=== PATIENT | female | born 1930 | race Caucasian/White ===

== ENCOUNTER 2017-01-01 05:55 | Inpatient (IN) | payer MEDICARE ==
[2017-01-01] VITALS (17 sets, daily range): BP systolic 124–191; BP diastolic 58–114; PULSE 71–123; RESP 20–28; TEMP 97.7–98; O2SAT 96–100
[~2017-01-01] VITALS: Ht 157.5 cm; Wt 58.1 kg
[~2017-01-01 05:55] MED LIST: ATOR40TA49 PO; BAYE325T3 PO; CARV3.12 PO; CEPH500C3 PO; CLOP75 PO; LISI-587 PO; LORTA5 PO; NITR.4 SL
[2017-01-01] MEDS ORDERED: NITROGLYCERIN-DEXTROSE INJ 250 ML ONE (05:58)
[2017-01-01] MEDS ORDERED: NITROGLYCERIN-DEXTROSE INJ 250 ML IV ONE (06:15)
[2017-01-01] MEDS ORDERED: SODIUM CHLORIDE 0.9% FLUSH 10 ML FLUSH IVF PRN (06:15)
[2017-01-01] MEDS ORDERED: ASPIRIN 300 MG SUPP RECTAL ONE (06:15)
[2017-01-01] MEDS ORDERED: methylPREDNISolone SOD SUCC 125 MG/2 ML VIAL IVP ONE (06:15)
--- NOTE | 2017-01-01 06:18 | PD ---
HPI Chief Complaint: Respiratory Symptoms Time Seen by Provider: 06:04 Travel History International Travel<30 days: No Contact w/Intl Traveler<30days: No Traveled to known affect area: No History of Present Illness HPI The patient is an 86 year old female who presents to the [facility] emergency department with a history of shortness of breath that awoke her from sound sleep prior to arrival. The patient on arrival of ambulance services was noted to be tachypneic with a respiratory rate in the 60s, blood pressure initially 240/120, diaphoretic, with difficulty speaking related to conversational dyspnea. The patient was noted to be wheezing on examination and was started on an albuterol nebulizer treatment. The patient was then noted to have some crackles. The patient was given Lasix 40 IV, nitroglycerin sublingual times one. The patient on arrival reports continued respiratory distress. The patient was switched over to BiPAP. The patient's O2 saturation on arrival is 93-94%. Ambulance services reported that they were not able to assess the patient's O2 saturation on room air, as she was in such respiratory distress immediately placed her on a nonrebreather mask. The patient reports that she does have chest tightness. She reports that she has had a history of myocardial infarction in 2004. She reports that she quit smoking at that time. She reports that she does have a history of COPD. The patient denies being on any oxygen at home. Otherwise on review of systems, the patient denies having any known fevers, worsening cough or congestion recently, neck pain, abdominal pain, vomiting, diarrhea, urinary symptoms, or neurologic symptoms. [facility] Past Medical History Narrative Medical The patient's past medical history is significant for coronary artery disease status post myocardial infarction. The patient denies any history of hypertension. The patient has a history of COPD, according to the record the patient has a history of congestive heart failure, arthritis, and according to the record hypertension. She denies being on any antihypertensive medications. Hx Anticoagulant Therapy: Yes Arthritis: Yes Asthma: No Blood Disorders: No Anxiety: No Depression: No Heart Rhythm Problems: Yes (SKIPPING BEATS) Cancer: No Cardiac Catheterization: Yes Cardiovascular Problems: Yes High Cholesterol: No Chemotherapy: No Chest Pain: Yes (REFERS TO CHEST PRESSURE) Congestive Heart Failure: Yes COPD: No Cerebrovascular Accident: No Diabetes: No Diminished Hearing: Yes Endocrine: No Gastrointestinal Disorders: No Genitourinary: No Headaches: No Hypertension: Yes Immune Disorder: No Implanted Vascular Access Dvce: No Musculoskeletal: Yes (ARTHRITIS) Neurologic: No Psychiatric: No Reproductive: No Respiratory: Yes Myocardial Infarction: Yes Radiation Therapy: No Seizures: No Sleep Apnea: No Thyroid Disease: No Tetanus Vaccination: Unknown Influenza Vaccination: Yes Past Surgical History Narrative Surgical The patient's past surgical history is significant for cardiac catheterization with stent placement 4. Abdominal Surgery: No AICD: No Cardiac Surgery: No Coronary Stent: Yes (X4) Ear Surgery: No Endocrine Surgery: No Eye Surgery: No Genitourinary Surgery: No Gynecologic Surgery: No Joint Replacement: No Neurologic Surgery: No Oral Surgery: No Pacemaker: No Thoracic Surgery: No Other Surgery: No Social History Alcohol Use: No Tobacco Use: No Substance Use: No Allergies-Medications (Allergen,Severity, Reaction): Coded Allergies: No Known Allergies (Verified , 03/22/16) Reported Meds & Prescriptions Reported Meds & Active Scripts Active Monroe 5-325 mg (Hydrocodone-Acetaminophen 5-325 mg) 1 Tab 1 Tab PO Q6H PRN Keflex (Cephalexin Monohydrate) 500 Mg Cap 500 Mg PO BID 7 Days Nitroglycerin Tab 0.4 Mg Sl (Nitroglycerin) 0.4 Mg Subl 0.4 Mg SL Q5M PRN 30 Days Plavix (Clopidogrel Bisulfate) 75 Mg Tab 75 Mg PO DAILY 30 Days Reported Reyna Aspirin (Aspirin) 325 Mg Tab 325 Mg PO DAILY Carvedilol 3.125 mg (Carvedilol) 3.125 Mg Tab 1 Tab PO BID Zestoretic 20/25 (Lisinopril/Hctz 20 mg/25 mg) 20 mg/25 mg Tab 1 Tab PO DAILY Lipitor 40 Mg Tab (Atorvastatin Calcium) 40 Mg Tab 40 Mg PO DAILY Review of Systems Except as stated in HPI: all other systems reviewed are Neg General / Constitutional: No: Fever Eyes: No: Visual changes HENT: No: Headaches Cardiovascular: Positive: Chest Pain or Discomfort (chest tightness), Dyspnea on exertion Respiratory: Positive: Cough, Shortness of Breath, Wheezing Gastrointestinal: No: Nausea, Diarrhea, Abdominal Pain Genitourinary: No: Dysuria Musculoskeletal: No: Pain Skin: No Rash Neurologic: No: Weakness Psychiatric: No: Depression Endocrine: No: Polydipsia Hematologic/Lymphatic: No: Easy Bruising Physical Exam Narrative General: The patient is a well-developed well-nourished female in no acute distress. Head and Neck exam: Head is normocephalic atraumatic. Eyes: EOMI, pupils are equal round and reactive to light. Nose: Midline septum with pink mucous membranes Mouth: Dentition unremarkable. Moist mucus membranes. Posterior oropharynx is not erythematous. No tonsillar hypertrophy. Uvula midline. Airway patent. Neck: No palpable lymphadenopathy. No nuchal rigidity. No thyromegaly. Cardiovascular: Sinus tachycardia in the low 100 without murmurs, gallops, or rubs. No pulse deficit to the extremities on simultaneous auscultation and palpation of her radial artery. Lungs: The patient has a prolonged expiratory phase of breathing with retractions, tripoding, accessory muscle use, and wheezing throughout bilateral lung bach, no rhonchi, no crackles are audible. Abdomen: Soft, without tenderness to palpation in all 4 quadrants of the abdomen. No guarding, rebound, or rigidity. Normal bowel sounds are audible. No tenderness on palpation of McBurney's point. Negative [place] sign. Extremities: No clubbing or cyanosis. The patient has trace to 1+ edema bilateral lower extremities. 2+ pulses in all 4 extremities. No calf tenderness on palpation. Back: No spinous process tenderness to palpation. No costovertebral angle tenderness to palpation. Neurologic Exam: Grossly nonfocal. Skin Exam: No rash noted. Intact skin that is warm and dry. Data Data Last Documented VS Vital Signs Date Time Temp Pulse Resp B/P Pulse Ox O2 Delivery O2 Flow Rate FiO2 01/01/17 07:01 73 28 127/72 96 CPAP 01/01/17 06:26 75 01/01/17 05:57 98.0 Orders Nitroglycerin-Dextrose Inj (Nitroglyceri (01/01/17 05:58) Complete Blood Count With Diff (01/01/17 06:04) Comprehensive Metabolic Panel (01/01/17 06:04) B-Type Natriuretic Peptide (01/01/17 06:04) Act Partial Throm Time (Ptt) (01/01/17 06:04) Prothrombin Time / Inr (Pt) (01/01/17 06:04) Magnesium (Mg) (01/01/17 06:04) Ckmb (Isoenzyme) Profile (01/01/17 06:04) Troponin I (01/01/17 06:04) Urinalysis - C+S If Indicated (01/01/17 06:04) Influenzae A/B Antigen (01/01/17 06:04) Blood Culture (01/01/17 06:04) Iv Access Insert/Monitor (01/01/17 06:04) Electrocardiogram (01/01/17 06:04) Ecg Monitoring (01/01/17 06:04) Oximetry (01/01/17 06:04) Oxygen Administration (01/01/17 06:04) Chest, Single Ap (01/01/17 06:04) Sodium Chloride 0.9% Flush (Ns Flush) (01/01/17 06:15) Methylprednisolone So Succ Inj (Solumedr (01/01/17 06:15) Albuterol-Ipratropium Neb (Duoneb Neb) (01/01/17 06:15) Nitroglycerin-Dextrose Inj (Nitroglyceri (01/01/17 06:15) Aspirin Supp (Aspirin Supp) (01/01/17 06:15) Urinary Catheter Insert/Apply (01/01/17 06:08) Resp Bipap / Cpap Non Invas Vt (01/01/17 ) Arterial Blood Gas (Abg) (01/01/17 ) Lorazepam Inj (Ativan Inj) (01/01/17 06:30) CKMB (01/01/17 06:13) CKMB% (01/01/17 06:13) Labs Laboratory Tests Test 01/01/17 01/01/17 06:13 06:35 White Blood Count 14.0 TH/MM3 Red Blood Count 4.36 MIL/MM3 Hemoglobin 13.1 GM/DL Hematocrit 40.3 % Mean Corpuscular Volume 92.5 FL Mean Corpuscular Hemoglobin 30.0 PG Mean Corpuscular Hemoglobin 32.4 % Concent Red Cell Distribution Width 14.9 % Platelet Count 342 TH/MM3 Mean Platelet Volume 8.6 FL Neutrophils (%) (Auto) 66.7 % Lymphocytes (%) (Auto) 28.4 % Monocytes (%) (Auto) 4.2 % Eosinophils (%) (Auto) 0.0 % Basophils (%) (Auto) 0.7 % Neutrophils # (Auto) 9.3 TH/MM3 Lymphocytes # (Auto) 4.0 TH/MM3 Monocytes # (Auto) 0.6 TH/MM3 Eosinophils # (Auto) 0.0 TH/MM3 Basophils # (Auto) 0.1 TH/MM3 CBC Comment DIFF FINAL Differential Comment Prothrombin Time 11.4 SEC Prothromb Time International 1.0 RATIO Ratio Activated Partial 18.2 SEC Thromboplast Time Sodium Level 141 MEQ/L Potassium Level 3.7 MEQ/L Chloride Level 107 MEQ/L Carbon Dioxide Level 19.0 MEQ/L Anion Gap 15 MEQ/L Blood Urea Nitrogen 23 MG/DL Creatinine 1.31 MG/DL Estimat Glomerular Filtration 39 ML/MIN Rate Random Glucose 236 MG/DL Calcium Level 8.4 MG/DL Magnesium Level 2.2 MG/DL Total Bilirubin 0.7 MG/DL Aspartate Amino Transf 29 U/L (AST/SGOT) Alanine Aminotransferase 27 U/L (ALT/SGPT) Alkaline Phosphatase 100 U/L Total Creatine Kinase 139 U/L Troponin I 0.07 NG/ML Total Protein 6.9 GM/DL Albumin 3.7 GM/DL Blood Gas Puncture Site LT RADIAL Blood Gas Patient Temperature 98.6 Blood Gas HCO3 21 mmol/L Blood Gas Base Excess -2.9 mmol/L Blood Gas Oxygen Saturation 99 % Arterial Blood pH 7.38 Arterial Blood Partial 37 mmHg Pressure CO2 Arterial Blood Partial 328 mmHG Pressure O2 Arterial Blood Oxygen Content 19.1 Vol % Arterial Blood 0.9 % Carboxyhemoglobin Arterial Blood Methemoglobin 0.6 % Blood Gas Hemoglobin 13.3 G/DL Oxygen Delivery Device BIPAP Blood Gas Ventilator Setting Blood Gas Inspired Oxygen 75 % [facility] Medical Decision Making Medical Screen Exam Complete: Yes Emergency Medical Condition: Yes Medical Record Reviewed: Yes Interpretation(s) Last Impressions Chest X-Ray 01/01/17 0604 Signed Impressions: Service Date/Time: Sunday, January 01, 2017 06:10 - CONCLUSION: Hyperaeration of the lung bach with mild bibasilar infiltrates. Rambo Bowman MD Differential Diagnosis COPD exacerbation, versus pneumonia, versus acute coronary syndrome, versus flash pulmonary edema due to hypertensive emergency Narrative Course During the course of the patients emergency department visit, the patients history, examination, and differential diagnosis were reviewed with the patient. The patient had IV access obtained and blood work sent for analysis. The patient was placed on a satellite project site monitor with oximetry and blood pressure monitoring. An ECG was done on arrival. The patient's ECG reveals a sinus tachycardia rate of 110, QRS duration 82 ms, QTC 403 ms, no acute ST segment elevation is noted. The patient is noted to have Q waves in lead 2, 3, aVF. The patient was placed on BiPAP. The patient was initially provided the patient was given aspirin 300 mg [place]. The patient had a Valle catheter placed to gravity. The patient was placed on a nitro drip to bring down her systolic blood pressure by 20% from its maximum at 240. The patient was started on DuoNeb 3, Solu-Medrol 125 mg IV. The patient was given Lasix 40 mg IV prior to arrival by ambulance services. The patients laboratory studies were reviewed and remarkable for a white count of 14, hemoglobin 13.1, platelets 342 with a normal differential, CMP is remarkable for a CO2 of 19, BUN 23, troponin I 0.07, PT 11.4, PTT 18.2, urinalysis and other chemistries are pending. Radiology studies were reviewed and remarkable for a chest x-ray that shows hyperaeration of the lung bach with a mild bi-basilar infiltrate. The patient's case was checked out to the oncoming emergency physician to disposition the patient based on the conclusion of the workup. The patient will clearly be admitted to the hospital for continued evaluation and treatment. An ABG was done which showed a bicarbonate of 21, base excess -2.9, PO2 328 on 70% FiO2, PCO2 37. This is on BiPAP settings of 15/8, 70%. The patient was weaned down to 40% FiO2. Critical Care Narrative Aggregate critical care time was 35 minutes. Time to perform other separately billable procedures was not included in the critical care time. My time did not include minutes spent treating any other patients simultaneously or on activities that did not directly contribute to the patient's treatment. The services I provided to this patient were to treat and/or prevent clinically significant deterioration that could result in: Respiratory failure versus cardiovascular collapse I provided critical care services requiring my management, as noted below: Chart data review, documentation time, medication orders and management, vital sign assessments/reviewing monitor data, ordering and reviewing lab tests, ordering and interpreting/reviewing x-rays and diagnostic studies, care of the patient and discussion of the patient with the admitting physicians. Diagnosis Primary Impression: Respiratory distress Admitting Information Admitting Physician Requests: Melony Pedroza MD Jan 01, 2017 06:18
[2017-01-01] MEDS: RESP: ALBUTEROL 2.5 MG/IPRATROPIUM 0.5 MG NEB (SCH) INH (06:24)
[2017-01-01] MEDS ORDERED: LORazepam 2 MG/ML VIAL IV PUSH ONE (06:30)
[2017-01-01 06:37] LABS: AUTOMATED NEUTROPHIL # 9.3 TH/MM3 (1.8-7.7); BASOPHIL # 0.1 TH/MM3 (0-0.2); BASOPHIL % 0.7 % (0.0-2.0); HEMATOCRIT 40.3 % (35.0-46.0); HEMO FLAGS DIFF FINAL; LYMPH % 28.4 % (9.0-44.0); MEAN CELL VOLUME 92.5 FL (80.0-100.0); MEAN CORPUSCULAR HGB CONC 32.4 % (32.0-36.0); MONO % 4.2 % (0.0-8.0); NEUT % 66.7 % (16.0-70.0); PLATELET COUNT 342 TH/MM3 (150-450); RED BLOOD COUNT 4.36 MIL/MM3 (4.00-5.30); RED CELL DISTRIBUTION WIDTH 14.9 % (11.6-17.2)
--- NOTE | 2017-01-01 06:48 | RADRPT ---
EXAM DATE/TIME: 01/01/2017 06:10 [facility] COMPARISON: CHEST SINGLE AP, March 22, 2016, 13:05. INDICATIONS : Shortness of breath. MEDICAL HISTORY : None. SURGICAL HISTORY : None. ENCOUNTER: Initial ACUITY: 1 day PAIN SCORE: 0/10 LOCATION: Bilateral chest FINDINGS: A single view of the chest demonstrates hyperaeration of the lung bach. There are mild interstitial infiltrates in the lung bases. No definite pleural effusions. The heart size is within normal limits . No significant changes compared to the prior study. There is no pneumothorax.. CONCLUSION: Hyperaeration of the lung bach with mild bibasilar infiltrates. Rambo Bowman MD on January 01, 2017 at 6:46 Board Certified Radiologist. This report was verified electronically.
[2017-01-01 06:49] LABS: BLOOD GAS BASE EXCESS -2.9 mmol/L (-2-2); BLOOD GAS CARBOXYHEMOGLOBIN 0.9 % (0-4); BLOOD GAS HCO3 21 mmol/L (22-26); BLOOD GAS METHEMOGLOBIN 0.6 % (0-2); BLOOD GAS O2 HGB SATURATION 99 % (90-100); BLOOD GAS OXYGEN CONTENT 19.1 Vol % (12.0-20.0); BLOOD GAS PCO2 37 mmHg (38-42); BLOOD GAS PO2 328 mmHG (61-120); BLOOD GAS TOTAL HGB 13.3 G/DL (12.0-16.0); CRITICAL VALUE NO; OXYGEN DEVICE BIPAP; TEMP CORR TO 98.6
[2017-01-01 06:50] LABS: DRAW SITE LT RADIAL; FIO2 75 %; NUMBER OF ARTERIAL PUNCTURES 1; STAT YES; ULNAR PULSE PRESENT
[2017-01-01 06:53] LABS: APTT (PATIENT) 18.2 SEC (24.3-30.1); PROTHROMBIN TIME - PATIENT 11.4 SEC (9.8-11.6)
[2017-01-01 07:00] LABS: ALT (GPT) 27 U/L (10-53); ANION GAP 15 MEQ/L (5-15); AST (GOT) 29 U/L (15-37); BLOOD UREA NITROGEN 23 MG/DL (7-18); CHLORIDE 107 MEQ/L (98-107); GLOMERULAR FILTRATION RATE 39 ML/MIN (>89); MAGNESIUM 2.2 MG/DL (1.5-2.5); POTASSIUM 3.7 MEQ/L (3.5-5.1); SODIUM (NA) 141 MEQ/L (136-145)
[2017-01-01 07:04] LABS: ALKALINE PHOSPHATASE 100 U/L (45-117); CREATINE KINASE 139 U/L (26-192); TOTAL BILIRUBIN ADULT 0.7 MG/DL (0.2-1.0)
[2017-01-01 07:17] LABS: CKMB 4.3 NG/ML (0.5-3.6)
[2017-01-01 07:31] LABS: BACTERIA, URINE RARE /hpf; BLOOD, URINE NEG (NEG); COMMENT (UR) CULT NOT INDICATED; CULTURE IF INDICATED CULT NOT INDICATED; GLUCOSE,URINE NEG (NEG); HYALINE CAST, URINE 3 /lpf (RARE); KETONE, URINE NEG (NEG); MUCUS URINE FEW /lpf (OCC); NITRITE,URINE NEG (NEG); URINE COLOR LIGHT-YELLOW (YELLW/STRAW)
[2017-01-01] MEDS ORDERED: MORPHINE SULFATE 8 MG/ML INJ IV PUSH ONE (08:00)
[2017-01-01] MEDS ORDERED: ONDANSETRON HCL 4 MG/2 ML VIAL IV PUSH ONE (08:00)
[2017-01-01] MEDS ORDERED: FUROSEMIDE 40 MG/4 ML VIAL IV PUSH ONE (08:00)
[2017-01-01] MEDS ORDERED: NALOXONE HCL 0.4 MG/ML AMP IV PRN (08:00)
[2017-01-01] MEDS ORDERED: BISACODYL 10 MG SUPP RECTAL PRN (08:00)
[2017-01-01] MEDS ORDERED: CEFEPIME INJ 1,000 MG in SODIUM CHLORIDE 0.9% INJ 100 ML IV ONE (08:00)
[2017-01-01] MEDS ORDERED: SODIUM CHLORIDE 0.9% FLUSH 10 ML FLUSH IV FLUSH PRN (08:00)
[2017-01-01] MEDS ORDERED: LACTULOSE SYRUP 20 GM/30 ML CUP PO PRN (08:00)
[2017-01-01] MEDS ORDERED: MAGNESIUM HYDROXIDE SUSP 30 ML CUP PO PRN (08:00)
[2017-01-01] MEDS ORDERED: ONDANSETRON HCL 4 MG/2 ML VIAL IVP PRN (08:00)
[2017-01-01] MEDS ORDERED: AZITHROMYCIN INJ 500 MG in SODIUM CHLOR 0.9% 250 ML INJ 250 ML IV ONE (08:00)
[2017-01-01] MEDS ORDERED: SENNOSIDES 8.6 MG TAB PO PRN (08:00)
--- NOTE | 2017-01-01 08:13 | HHI.HP ---
[facility] Ant Weeks MD Admission Diagnosis exacerbation COPD. Pneumonia. CHF. Diagnoses: Chief Complaint: SOB, CP Travel History International Travel<30 Days: No Contact w/Intl Traveler <30 Da: No Traveled to Known Affected Are: No History of Present Illness This a pleasant 86-year-old elderly white female with significant past medical history of cardiogenic shock and respiratory failure in 2004 after having a myocardial infarction, stents 2 in 2004, ischemic cardiomyopathy, CHF, COPD, prior tobacco abuse quit in 2004. Patient indicates that she has been short of breath for the last couple weeks, on Friday she finally went to see her primary care physician who put her on a Z-Evin and gave her IM antibiotic. She has been using a nebulizer at home as needed for wheezing. Has history of COPD, she's not oxygen dependent. Family has noted that she's had increased dyspnea with exertion. Patient endorses orthopnea, has been having intermittent chest pain associated with increased shortness of breath and wheezing. This morning, she woke up suddenly very short of breath and tachypnea. Has noted increased ankle swelling. denies any fever, no chills, very little sputum. She does take hydrochlorothiazide. She has been compliant with medications. Her director of national sales is Dr. Decker. Her last echocardiogram was in 2014 at this facility showed improvement in EF from 20% to 45-50%. When EMS arrived, patient was noted with wheezing and crackles, she was given Lasix, nitroglycerin sublingual. On arrival, she was noted in respiratory distress and was switched to BiPAP. Patient was evaluated in emergency room, laboratory workup was completed. CBC remarkable for leukocytosis, WBC of 14. BMP remarkable for chronic renal insufficiency, creatinine 1.31. Random glucose 236. Troponin elevated, 0.07. B natriuretic peptide 1654. Carbon dioxide 19. Chest x-ray show high. Patient of the lung bach with mild right basilar infiltrates. Patient is currently in a nitro drip, she is off BiPAP at this time. She was given DuoNeb's and IV Solu-Medrol. Indicates she is feeling slightly improved. Family is at bedside. End-of-life care issues and CODE STATUS have been discussed with the patient and family. At this time patient wants to remain a full code and will accept intubation if necessary. Patient will be admitted to the intensive care unit for further evaluation. Review of Systems Constitutional: DENIES: Diaphoretic episodes, Fatigue, Fever, Weight gain, Weight loss, Chills, Dizziness, Change in appetite, Night Sweats Endocrine: DENIES: Abnorml menstrual pattern, Heat/cold intolerance, Polydipsia , Polyuria, Polyphagia Eyes: DENIES: Blurred vision, Diplopia, Eye inflammation, Eye pain, Vision loss , Photosensitivity, Double Vision Ears, nose, mouth, throat: DENIES: Tinnitus, Hearing loss, Vertigo, Nasal discharge, Oral lesions, Throat pain, Hoarseness, Ear Pain, Running Nose, Epistaxis, Sinus Pain, Toothache, Odynophagia Respiratory: COMPLAINS OF: Cough, Wheezing, Shortness of breath, DENIES: Apneas, Snoring, Hemoptysis, Sputum production Cardiovascular: COMPLAINS OF: Chest pain, Dyspnea on Exertion, Lower Extremity Edema, Orthopnea, DENIES: Palpitations, Syncope, PND, Claudication Gastrointestinal: DENIES: Abdominal pain, Black stools, Bloody stools, Constipation, Diarrhea, Nausea, Vomiting, Difficulty Swallowing, Anorexia Genitourinary: DENIES: Abnormal vaginal bleeding, Dysmenorrhea, Dyspareunia, Sexual dysfunction, Urinary frequency, Urinary incontinence, Urgency, Hematuria , Dysuria, Nocturia, Vaginal discharge Musculoskeletal: DENIES: Joint pain, Muscle aches, Stiffness, Joint Swelling, Back pain, Neck pain Integumentary: DENIES: Abnormal pigmentation, Pruritus, Rash, Nail changes, Breast masses, Breast skin changes, Nipple discharge Hematologic/lymphatic: DENIES: Bruising, Lymphadenopathy Immunologic/allergic: DENIES: Eczema, Urticaria Neurologic: DENIES: Abnormal gait, Headache, Localized weakness, Paresthesias, Seizures, Speech Problems, Tremor, Poor Balance Psychiatric: DENIES: Anxiety, Confusion, Mood changes, Depression, Hallucinations, Agitation, Suicidal Ideation, Homicidal Ideation, Delusions Past Family Social History Past Medical History Cardiogenic shock and resp. failure 2004, had cath and x 2 stents placed to RCA [place] COPD Dilated ischemic cardiomyopathy CAD Recent NSTEMI 2016, refused cath, put on Plavix. Echo 2014 EF 45-50% Admitted with chest pain, possible non-STEMI in 2014, declined cardiac catheterization at that time and was started on Plavix. Renal insufficiency Past Surgical History cardiac cath 2004 Reported Medications Reported Meds & Active Scripts Active [place] 5-325 mg (Hydrocodone-Acetaminophen 5-325 mg) 1 Tab 1 Tab PO Q6H PRN Keflex (Cephalexin Monohydrate) 500 Mg Cap 500 Mg PO BID 7 Days Nitroglycerin Tab 0.4 Mg Sl (Nitroglycerin) 0.4 Mg Subl 0.4 Mg SL Q5M PRN 30 Days Plavix (Clopidogrel Bisulfate) 75 Mg Tab 75 Mg PO DAILY 30 Days Reported Reyna Aspirin (Aspirin) 325 Mg Tab 325 Mg PO DAILY Carvedilol 3.125 mg (Carvedilol) 3.125 Mg Tab 1 Tab PO BID Zestoretic 20/25 (Lisinopril/Hctz 20 mg/25 mg) 20 mg/25 mg Tab 1 Tab PO DAILY Lipitor 40 Mg Tab (Atorvastatin Calcium) 40 Mg Tab 40 Mg PO DAILY Allergies: Coded Allergies: No Known Allergies (Verified , 03/22/16) Active Ordered Medications Last Impressions Chest X-Ray 01/01/17 0604 Signed Impressions: Service Date/Time: Sunday, January 01, 2017 06:10 - CONCLUSION: Hyperaeration of the lung bach with mild bibasilar infiltrates. Rambo Bowman MD Family History Mother: Alzheimer Brother: [place] Daughter: DM Son -. Social History Tobacco: former smoker; quit 2005 years ago. EtOH: denies Illicit drugs: denies Lives at home with , ambulates some, lately more SOB with exertion Has 2 grown daughters who live close by Physical Exam Vital Signs Vital Signs Date Time Temp Pulse Resp B/P Pulse Ox O2 Delivery O2 Flow Rate FiO2 01/01/17 08:07 96 Nasal Cannula 4.00 01/01/17 07:01 73 28 127/72 96 CPAP 01/01/17 06:40 74 24 139/65 98 CPAP 01/01/17 06:32 84 20 136/70 99 CPAP 01/01/17 06:26 87 24 158/77 98 CPAP 75 01/01/17 06:09 24 96 CPAP 75 01/01/17 06:09 96 CPAP 75 01/01/17 06:00 96 75 01/01/17 05:57 98.0 123 24 191/114 96 Physical Exam GENERAL: This is a well-nourished, well-developed elderly patient, slightly tachypneic SKIN: No rashes, ecchymoses or lesions. Cool and dry. HEAD: Atraumatic. Normocephalic. No temporal or scalp tenderness. EYES: Pupils equal round and reactive. Extraocular motions intact. No scleral icterus. No injection or drainage. ENT: Nose without bleeding, purulent drainage or septal hematoma. Throat without erythema, tonsillar hypertrophy or exudate. Uvula midline. Airway patent. NECK: Trachea midline. No JVD or lymphadenopathy. Supple, nontender, no meningeal signs. CARDIOVASCULAR: Regular rate and rhythm without murmurs, gallops, or rubs. RESPIRATORY: diffuse exp. wheezing, audible. Fine rales at bases GASTROINTESTINAL: Abdomen soft, non-tender, nondistended. No hepato-splenomegaly , or palpable masses. No guarding. MUSCULOSKELETAL: Extremities without clubbing, cyanosis, or edema. No joint tenderness, effusion, or edema noted. No calf tenderness. Negative Homans sign bilaterally. NEUROLOGICAL:Awake, alert and oriented x 3. No focal deficits. Laboratory Laboratory Tests Test 01/01/17 01/01/17 01/01/17 06:13 06:35 06:40 White Blood Count 14.0 Red Blood Count 4.36 Hemoglobin 13.1 Hematocrit 40.3 Mean Corpuscular Volume 92.5 Mean Corpuscular Hemoglobin 30.0 Mean Corpuscular Hemoglobin 32.4 Concent Red Cell Distribution Width 14.9 Platelet Count 342 Mean Platelet Volume 8.6 Neutrophils (%) (Auto) 66.7 Lymphocytes (%) (Auto) 28.4 Monocytes (%) (Auto) 4.2 Eosinophils (%) (Auto) 0.0 Basophils (%) (Auto) 0.7 Neutrophils # (Auto) 9.3 Lymphocytes # (Auto) 4.0 Monocytes # (Auto) 0.6 Eosinophils # (Auto) 0.0 Basophils # (Auto) 0.1 CBC Comment DIFF FINAL Differential Comment Prothrombin Time 11.4 Prothromb Time International 1.0 Ratio Activated Partial 18.2 Thromboplast Time Sodium Level 141 Potassium Level 3.7 Chloride Level 107 Carbon Dioxide Level 19.0 Anion Gap 15 Blood Urea Nitrogen 23 Creatinine 1.31 Estimat Glomerular Filtration 39 Rate Random Glucose 236 Calcium Level 8.4 Magnesium Level 2.2 Total Bilirubin 0.7 Aspartate Amino Transf 29 (AST/SGOT) Alanine Aminotransferase 27 (ALT/SGPT) Alkaline Phosphatase 100 Total Creatine Kinase 139 Creatine Kinase MB 4.3 Troponin I 0.07 B-Type Natriuretic Peptide 1654 Total Protein 6.9 Albumin 3.7 Blood Gas Puncture Site LT RADIAL Blood Gas Patient Temperature 98.6 Blood Gas HCO3 21 Blood Gas Base Excess -2.9 Blood Gas Oxygen Saturation 99 Arterial Blood pH 7.38 Arterial Blood Partial 37 Pressure CO2 Arterial Blood Partial 328 Pressure O2 Arterial Blood Oxygen Content 19.1 Arterial Blood 0.9 Carboxyhemoglobin Arterial Blood Methemoglobin 0.6 Blood Gas Hemoglobin 13.3 Oxygen Delivery Device BIPAP Blood Gas Ventilator Setting Blood Gas Inspired Oxygen 75 Urine Color LIGHT-YELLOW Urine Turbidity CLEAR Urine pH 6.0 Urine Specific [place] 1.009 Urine Protein NEG Urine Glucose (UA) NEG Urine Ketones NEG Urine Occult Blood NEG Urine Nitrite NEG Urine Bilirubin NEG Urine Urobilinogen LESS THAN 2.0 Urine Leukocyte Esterase NEG Urine RBC LESS THAN 1 Urine WBC LESS THAN 1 Urine Bacteria RARE Urine Hyaline Casts 3 Urine Mucus FEW Microscopic Urinalysis Comment CULT NOT INDICATED Date/Time Procedure Status Source Growth 01/01/17 06:14 Aerobic Blood Culture Received Blood Peripheral Pending 01/01/17 06:14 Anaerobic Blood Culture Received Blood Peripheral Pending Result Diagram: 01/01/1713 01/01/1713 Imaging Last Impressions Chest X-Ray 01/01/17 0604 Signed Impressions: Service Date/Time: Sunday, January 01, 2017 06:10 - CONCLUSION: Hyperaeration of the lung bach with mild bibasilar infiltrates. Rambo Bowman MD Assessment and Plan Problem List: (1) Respiratory distress (2) CHF (congestive heart failure) (3) COPD with acute exacerbation (4) Pneumonia (5) Elevated troponin (6) Renal insufficiency (7) Chest pain (8) Hyperglycemia Assessment and Plan Admit to Dr. Hull 86-year-old female with history of ischemic cardiomyopathy, CAD and prior stents , COPD, CHF. Presented to the emergency room with sudden shortness of breath, chest pain. Found in respiratory distress, combination of CHF exacerbation, COPD and possible underlying pneumonia. Respiratory failure, on BiPAP. Currently on oxygen at 4 L nasal cannula COPD exacerbation Possible pneumonia versus bronchitis -Continue with oxygen and BiPAP as needed Consult pulmonology for evaluation -Solu-Medrol 60 mg IV every 6 DuoNeb's schedule and as needed Continue with empiric antibiotics -Add Mucinex ER 600 mg by mouth twice a day Acute CHF exacerbation, last echo in 2014 with EF of 45 50%. Ischemic cardiomyopathy Elevated troponin, non-STEMI likely secondary to demand Coronary artery disease with previous stents and [place] -Continue with serial cardiac enzymes -Continue nitroglycerin drip and titrate to chest pain -Consult cardiology for evaluation We will obtain 2-D echo to evaluate left ventricular function Continue Lasix 40 mg IV twice a day Continue with strict intake and output, keep Valle catheter in place at this time -Continue carvedilol, Plavix, atorvastatin, aspirin Renal insufficiency, appears at baseline Monitor renal function, patient is currently on diuretics -Monitor BMP Hypertension, initially uncontrolled due to respiratory distress Continue with home medications Hyperlipidemia We will check lipid profile Continue with statins Hyperglycemia, patient is nondiabetic. Possibly elevated due to stress response and Solu-Medrol We will check hemoglobin A1c Home medications reviewed, initiated as indicated Heparin 5000 units subcutaneous twice a day for DVT prophylaxis Patient's condition is guarded, plan of care has been discussed with the patient 's family and their questions have been answered detail. End of life care issues have been discussed with patient. At this time, patient wants to remain a full code and will accept intubation if needed. Plan of care discussed with attending and RN. Further management of the patient will be dependent on the hospital course This patient was seen by myself and Dr. Hull, this H&P is written on his behalf Physician Certification 2 Midnight Certification Type: Admission for Inpatient Services Order for Inpatient Services The services are ordered in accordance with Medicare regulations or non- Medicare payer requirements, as applicable. In the case of services not specified as inpatient-only, they are appropriately provided as inpatient services in accordance with the 2-midnight benchmark. Estimated LOS (days): 2 2 days is the estimated time the patient will need to remain in the hospital, assuming treatment plan goals are met and no additional complications. Post-Hospital Plan: Not yet determined Problem Qualifiers (1) CHF (congestive heart failure): Qualified Code: I50.23 - Acute on chronic systolic congestive heart failure (2) Pneumonia: Qualified Code: J18.9 - Pneumonia of both lower lobes due to infectious organism (3) Chest pain: Qualified Code: I20.0 - Unstable angina pectoris Yenifer Forrest Jan 01, 2017 08:13
--- NOTE | 2017-01-01 08:14 | PD ---
Physical Exam Narrative Patient was seen by ED physician and signed out to me. Data Data Last Documented VS Vital Signs Date Time Temp Pulse Resp B/P Pulse Ox O2 Delivery O2 Flow Rate FiO2 01/01/17 08:07 96 Nasal Cannula 4.00 01/01/17 07:01 73 28 127/72 01/01/17 06:26 75 01/01/17 05:57 98.0 Orders Nitroglycerin-Dextrose Inj (Nitroglyceri (01/01/17 05:58) Complete Blood Count With Diff (01/01/17 06:04) Comprehensive Metabolic Panel (01/01/17 06:04) B-Type Natriuretic Peptide (01/01/17 06:04) Act Partial Throm Time (Ptt) (01/01/17 06:04) Prothrombin Time / Inr (Pt) (01/01/17 06:04) Magnesium (Mg) (01/01/17 06:04) Ckmb (Isoenzyme) Profile (01/01/17 06:04) Troponin I (01/01/17 06:04) Urinalysis - C+S If Indicated (01/01/17 06:04) Influenzae A/B Antigen (01/01/17 06:04) Blood Culture (01/01/17 06:04) Iv Access Insert/Monitor (01/01/17 06:04) Electrocardiogram (01/01/17 06:04) Ecg Monitoring (01/01/17 06:04) Oximetry (01/01/17 06:04) Oxygen Administration (01/01/17 06:04) Chest, Single Ap (01/01/17 06:04) Sodium Chloride 0.9% Flush (Ns Flush) (01/01/17 06:15) Methylprednisolone So Succ Inj (Solumedr (01/01/17 06:15) Albuterol-Ipratropium Neb (Duoneb Neb) (01/01/17 06:15) Nitroglycerin-Dextrose Inj (Nitroglyceri (01/01/17 06:15) Aspirin Supp (Aspirin Supp) (01/01/17 06:15) Urinary Catheter Insert/Apply (01/01/17 06:08) Resp Bipap / Cpap Non Invas Vt (01/01/17 ) Arterial Blood Gas (Abg) (01/01/17 ) Lorazepam Inj (Ativan Inj) (01/01/17 06:30) CKMB (01/01/17 06:13) CKMB% (01/01/17 06:13) Furosemide Inj (Lasix Inj) (01/01/17 08:00) Cefepime Inj (Maxipime Inj) (01/01/17 08:00) Azithromycin Inj (Zithromax Inj) (01/01/17 08:00) Morphine Inj (Morphine Inj) (01/01/17 08:00) Ondansetron Inj (Zofran Inj) (01/01/17 08:00) Admit To Inpatient (01/01/17 ) Vital Signs (Adult) Q4H (01/01/17 07:59) Activity Oob With Assistance (01/01/17 07:59) Engineering Designer / Telemetry .CONTINUOUS (01/01/17 07:59) Diet Heart Healthy (01/01/17 Breakfast) Sodium Chloride 0.9% Flush (Ns Flush) (01/01/17 08:00) Sodium Chloride 0.9% Flush (Ns Flush) (01/01/17 09:00) Ondansetron Inj (Zofran Inj) (01/01/17 08:00) Basic Metabolic Panel (Bmp) (01/02/17 06:00) Complete Blood Count With Diff (01/02/17 06:00) Creatine Kinase (Cpk) (01/01/17 07:59) Creatine Kinase (Cpk) (01/01/17 13:59) Troponin I (01/01/17 07:59) Troponin I (01/01/17 13:59) Heparin Inj (Heparin Inj) (01/01/17 08:00) Naloxone Inj (Narcan Inj) (01/01/17 08:00) Docusate Sodium-Senna ([place]-Colace) (01/01/17 09:00) Magnesium Hydroxide Liq (Milk Of Magnesi (01/01/17 08:00) Sennosides (Senokot) (01/01/17 08:00) Bisacodyl Supp (Dulcolax Supp) (01/01/17 08:00) Lactulose Liq (Lactulose Liq) (01/01/17 08:00) Inpatient Certification (01/01/17 ) Consult Cardiology (01/01/17 ) Aspirin Ec (Ecotrin Ec) (01/01/17 09:00) Atorvastatin (Lipitor) (01/01/17 09:00) Carvedilol (Coreg) (01/01/17 09:00) Clopidogrel (Plavix) (01/01/17 09:00) Acetamin-Hydrocod 325-5 Mg ([place] 5-325 (01/01/17 08:15) Nitroglycerin Sl (Nitrostat Sl) (01/01/17 08:15) (Nf) Lisinopril/Hctz 20 Mg/25 Mg (Zestor (01/01/17 09:00) Admit Order (Ed Use Only) (01/01/17 08:06) Furosemide Inj (Lasix Inj) (01/01/17 09:00) Albuterol-Ipratropium Neb (Duoneb Neb) (01/01/17 08:15) Potassium Chloride Eff (K-[place] Cl Eff) (01/01/17 09:00) Labs Laboratory Tests Test 01/01/17 01/01/17 01/01/17 06:13 06:35 06:40 White Blood Count 14.0 TH/MM3 Red Blood Count 4.36 MIL/MM3 Hemoglobin 13.1 GM/DL Hematocrit 40.3 % Mean Corpuscular Volume 92.5 FL Mean Corpuscular Hemoglobin 30.0 PG Mean Corpuscular Hemoglobin 32.4 % Concent Red Cell Distribution Width 14.9 % Platelet Count 342 TH/MM3 Mean Platelet Volume 8.6 FL Neutrophils (%) (Auto) 66.7 % Lymphocytes (%) (Auto) 28.4 % Monocytes (%) (Auto) 4.2 % Eosinophils (%) (Auto) 0.0 % Basophils (%) (Auto) 0.7 % Neutrophils # (Auto) 9.3 TH/MM3 Lymphocytes # (Auto) 4.0 TH/MM3 Monocytes # (Auto) 0.6 TH/MM3 Eosinophils # (Auto) 0.0 TH/MM3 Basophils # (Auto) 0.1 TH/MM3 CBC Comment DIFF FINAL Differential Comment Prothrombin Time 11.4 SEC Prothromb Time International 1.0 RATIO Ratio Activated Partial 18.2 SEC Thromboplast Time Sodium Level 141 MEQ/L Potassium Level 3.7 MEQ/L Chloride Level 107 MEQ/L Carbon Dioxide Level 19.0 MEQ/L Anion Gap 15 MEQ/L Blood Urea Nitrogen 23 MG/DL Creatinine 1.31 MG/DL Estimat Glomerular Filtration 39 ML/MIN Rate Random Glucose 236 MG/DL Calcium Level 8.4 MG/DL Magnesium Level 2.2 MG/DL Total Bilirubin 0.7 MG/DL Aspartate Amino Transf 29 U/L (AST/SGOT) Alanine Aminotransferase 27 U/L (ALT/SGPT) Alkaline Phosphatase 100 U/L Total Creatine Kinase 139 U/L Creatine Kinase MB 4.3 NG/ML Troponin I 0.07 NG/ML B-Type Natriuretic Peptide 1654 PG/ML Total Protein 6.9 GM/DL Albumin 3.7 GM/DL Blood Gas Puncture Site LT RADIAL Blood Gas Patient Temperature 98.6 Blood Gas HCO3 21 mmol/L Blood Gas Base Excess -2.9 mmol/L Blood Gas Oxygen Saturation 99 % Arterial Blood pH 7.38 Arterial Blood Partial 37 mmHg Pressure CO2 Arterial Blood Partial 328 mmHG Pressure O2 Arterial Blood Oxygen Content 19.1 Vol % Arterial Blood 0.9 % Carboxyhemoglobin Arterial Blood Methemoglobin 0.6 % Blood Gas Hemoglobin 13.3 G/DL Oxygen Delivery Device BIPAP Blood Gas Ventilator Setting Blood Gas Inspired Oxygen 75 % Urine Color LIGHT-YELLOW Urine Turbidity CLEAR Urine pH 6.0 Urine Specific [place] 1.009 Urine Protein NEG mg/dL Urine Glucose (UA) NEG mg/dL Urine Ketones NEG mg/dL Urine Occult Blood NEG Urine Nitrite NEG Urine Bilirubin NEG Urine Urobilinogen LESS THAN 2.0 MG/DL Urine Leukocyte Esterase NEG Urine RBC LESS THAN 1 /hpf Urine WBC LESS THAN 1 /hpf Urine Bacteria RARE /hpf Urine Hyaline Casts 3 /lpf Urine Mucus FEW /lpf Microscopic Urinalysis Comment CULT NOT INDICATED MDM Supervised Visit with ABELINO: No Differential Diagnosis Differential diagnosis including acute exacerbation COPD, acute exacerbation CHF , pneumonia, PE, pneumothorax, angina, HI. Narrative Course Cefepime 1 g IV. Zithromax 500 mg IV. Patient was given nitroglycerin sublingually and Lasix 40 mg IV by EMS prior to arrival. Patient was given albuterol with Atrovent unit dose treatment 3. Solu-Medrol 125 mg IV. Patient was given BiPAP and with trial off O2 4 liter nasal cannula. Diagnosis Primary Impression: COPD with acute exacerbation Additional Impressions: Pneumonia Qualified Code: J18.9 - Pneumonia of both lower lobes due to infectious organism CHF (congestive heart failure) Qualified Code: I50.9 - Acute on chronic congestive heart failure, unspecified congestive heart failure type Admitting Information Admitting Physician Requests: Admit Mack Trujillo MD Jan 01, 2017 08:14
[2017-01-01] MEDS ORDERED: RESP: ALBUTEROL 2.5 MG/IPRATROPIUM 0.5 MG NEB (PRN) NEB (08:15)
[2017-01-01] MEDS ORDERED: NITROGLYCERIN 0.4 MG SL 25 TABS/BTL SL PRN (08:15)
[2017-01-01] MEDS ORDERED: ACETAMINOPHEN/HYDROcodone 325 MG/5 MG TAB PO PRN (08:15)
--- NOTE | 2017-01-01 08:37 | EKG ---
Date Performed: 01/01/2017 Time Performed: 06:04:47 PTAGE: 86 years EKG: SINUS TACHYCARDIA ANTERIOR MYOCARDIAL INFARCTION POSSIBLE INFERIOR MYOCARDIAL INFARCTION AB NORMAL ECG PREVIOUS TRACING : 01/01/2017 06.03 DOCTOR: Maxime Huang Interpretating Date/Time 01/01/2017 08:35:41
[2017-01-01] MEDS ORDERED: guaiFENesin/DEXTROMETHORPHAN 200 MG/20 MG/10 ML CUP PO PRN (08:45)
[2017-01-01] MEDS ORDERED: HCTZ PO SCH (09:00)
[2017-01-01] MEDS ORDERED: LISINOPRIL PO SCH (09:00)
[2017-01-01] MEDS: FUROSEMIDE 40 MG/4 ML VIAL IV PUSH SCH ×2 (10:00→17:37)
[2017-01-01] MEDS: SODIUM CHLORIDE 0.9% FLUSH 10 ML FLUSH IV FLUSH SCH ×2 (10:11→20:30)
[2017-01-01] MEDS: DOCUSATE SODIUM 50 MG/SENNA 8.6 MG TAB PO SCH ×2 (10:24→20:31)
[2017-01-01] MEDS ORDERED: methylPREDNISolone SOD SUCC 40 MG/1 ML VIAL IV PUSH SCH (12:00)
--- NOTE | 2017-01-01 12:45 | MB ---
cc: WLILARD LAWS M.D. DATE OF CONSULTATION 01/01/[address] Hull REASON FOR CONSULTATION History of heart failure. HISTORY The patient is an 86-year-old female who has had some shortness of breath for the last two days. She saw her primary care physician who treated her with some antibiotics. This morning she had shortness of breath and presented to the emergency room. The patient has a history of known coronary artery disease. She had two stents in her right coronary artery in 2004 and she was known to have a total occlusion of the LAD. The circumflex has about 70% stenosis. She was hospitalized at [facility] in 2014 with chest pains. She did have elevated troponins at that time. She declined cardiac catheterization or even a stress test. The last stress test in my office was 2012. This showed kimberly-infarct anterior ischemia. An echocardiogram in 2014 reported an ejection fraction of around 45%. She did have evidence of diastolic dysfunction. She was last seen in my office in September of 2016 at which time she was doing well. She has not had any chest pains. She does have some shortness of breath from underlying COPD. The BMP is 1654 and troponin is elevated at 0.07. A chest x-ray shows mild bibasilar infiltrates. PAST MEDICAL HISTORY Allergies, None known. Surgeries: She has had prior cataract surgery. FAMILY HISTORY Her mother of dementia in her 60s. Her father of a clot after a cholecystectomy at age 45. SOCIAL HISTORY The patient is . She stopped smoking around 2004. She does not drink alcohol. Dr. Weeks is her primary care physician. REVIEW OF SYSTEMS CONSTITUTIONAL: No fevers or significant change in weight. HEAD, EYES, EARS, NOSE, AND THROAT: She has had a history of migraines in the past. LUNGS: She has had pneumonia in the past. She has on chronic COPD and a history of asthma. CARDIAC: She has had some congestive heart failure in the past. She has had a history of hypertension. ENDOCRINE: Negative for diabetes or obesity. She has osteoporosis. She has had a history of hyperlipidemia. She does have arthritis. HOME MEDICATIONS 1. Clopidogrel 75 mg a day 2. Lisinopril HCT 20-12.5 3. Carvedilol 3.125 twice a day 4. Aspirin drip 25 mg a day 5. Atorvastatin 20 mg a day 6. She has recently started on Cephalexin. PHYSICAL EXAM She is a pleasant, cooperative female who is resting comfortably and in no distress. She has received diuretics and has diuresed since presenting to the emergency room. Blood pressure recorded is 158/77, pulses 87 and regular. HEAD, EYES, EARS, NOSE, AND THROAT: She is alert, tongue is moist and midline, poor oral repair. NECK: Neck veins were not distended. LUNGS: She has some rales in the lung bases. CARDIAC: Exam shows a regular rhythm. No murmurs are heard. ABDOMEN: The abdomen is soft. No liver or spleen palpable. I could not feel good distal pulses. She does not have peripheral edema. LABORATORY Hemoglobin is 13.1, hematocrit 40.3, white count 14,000. Sodium 141, potassium 3.7, BUN 23, creatinine 1.3 giving an estimated GFR of 39. An initial troponin 0.7, repeat 0.16. An electrocardiogram showed sinus tachycardia, poor R-wave progression, possible prior inferior myocardial infarction. IMPRESSION 1. COPD 2. Probable congestive heart failure. 3. Elevated troponin with known coronary artery disease. 4. Renal insufficiency 5. Hypertension DISCUSSION AND RECOMMENDATIONS The patient has been started on diuretics. She is also receiving antibiotics. We will await an echocardiogram to see if there is a change in her ventricular function. She certainly has not wanted any invasive studies in the past and the plan will be continuation of medical treatment at this time. Thank you for asking us to see her. MD REBECCA Anthony/ARISTIDES /12:04 PM /12:31 PM
[2017-01-01] MEDS: HYDROCHLOROTHIAZIDE 25 MG TAB PO SCH (12:54)
[2017-01-01] MEDS: POTASSIUM CHLORIDE 25 MEQ EFFERVESCENT TAB PO SCH ×2 (12:55→20:30)
[2017-01-01] MEDS: HEPARIN SODIUM - SQ 10,000 UNITS/ML VIAL SQ SCH ×2 (12:56→20:31)
[2017-01-01] MEDS: CARVEDILOL 3.125 MG TAB PO SCH ×2 (13:03→20:30)
[2017-01-01] MEDS: RESP: ALBUTEROL 2.5 MG/IPRATROPIUM 0.5 MG NEB (SCH) NEB ×3 (13:09→20:46)
[2017-01-01] MEDS: guaiFENesin E.R. 600 MG TAB PO SCH ×2 (13:15→20:30)
[2017-01-01] MEDS: ATORVASTATIN 40 MG TAB PO SCH (13:15)
[2017-01-01] MEDS: LISINOPRIL 20 MG TAB PO SCH (13:16)
[2017-01-01] MEDS: CLOPIDOGREL 75 MG TAB PO SCH (13:16)
--- NOTE | 2017-01-01 13:45 | MB ---
cc: Aniket KNOX M.D. DATE OF CONSULTATION: 01/01/2017 HISTORY OF PRESENT ILLNESS Ms. Mcmahon is a 86-year-old white female with a known history of ischemic heart disease, as well as COPD dating back as far as 2004. She had smoked her entire adult life until that time but quit smoking and has not smoked since then. She was hospitalized in July for what sounds like another episode of heart failure and has been followed as an outpatient by Dr. Weeks and Dr. Decker. She does have a reduction in EF but had been stable at home. Over the last 2 or 3 weeks though, she has gradually had more shortness of breath, also increased lower extremity edema and then began to have some chest discomfort prior to the family insisting that she come into the ER. On presentation last evening she was in acute distress, required BiPAP. She received diuretics, aerosolized bronchodilators, corticosteroids and antibiotics for possible pneumonia and is currently on 4 liters nasal oxygen with 98% sat, feeling much better. She has a nebulizer at home but her family says she is "stubborn" and really does not use it very often. She has not been on oxygen at home. She had a cough but no purulent sputum or hemoptysis prior to admission. She was not aware of fever. Again, the primary symptoms were increasing edema and progressive shortness of breath. These episodes the family say are similar to presentations prior to this when she would come in, in heart failure or "fluid on her lungs". PAST MEDICAL HISTORY 1. Coronary artery disease. 2. Cardiogenic shock with respiratory failure in 2004. She had two stents placed at that time but has apparently refused recatheterization since then and managed medically. 3. History of renal insufficiency. 4. No prior history of malignancy. 5. She has had pneumonias in the past. ALLERGIES None known. MEDICATIONS Reviewed and recorded in the EMR. FAMILY HISTORY Mother had Alzheimer's. There is a positive history of diabetes and coronary disease in the family. SOCIAL HISTORY Lives with her family. Smoked as noted above, probably 50 pack-years, quit 10 years ago. No alcohol use. REVIEW OF SYSTEMS Other than that noted above, no nausea, vomiting, abdominal pain or recent change in bowel habits. No unusual animal exposures. PHYSICAL EXAMINATION GENERAL: Awake, alert, comfortable at rest on nasal cannula. VITAL SIGNS: 98 degrees, blood pressure is 140/65, respirations 18-22. HEENT: Sclerae pale, anicteric. NECK: Neck veins are not distended. CHEST: Scattered wheezes with congestion and some basilar rales. HEART: Soft systolic murmur. No audible S3. ABDOMEN: Abdomen is soft. EXTREMITIES: No peripheral edema or calf tenderness. LABORATORY DATA White count is 14,000, blood gases on BiPAP this morning earlier 328 pO2, pH 7.38, pCO2 37. BUN 23, creatinine 1.3. BNP was 1654. Troponin rising from 0.07 to 0.16. Blood cultures are pending. DISCUSSION Ms. Mcmahon presents with a probable mild CHF. She is being worked up from a cardiac standpoint for ischemia. She does have underlying COPD which may be a contributing factor and there may be some basilar pneumonia based on the chest x-ray. She has responded very favorably to the initial therapy, will continue her on oxygen as well as aerosolized bronchodilators, reduce the doses of steroids at this point since she has responded so quickly. Prior to discharge will obtain a spirometry and see whether or not some additional therapy at home might be helpful as I said to she and her family to control the underlying COPD. Further diagnostic and/or therapeutic intervention will depend on the results of her ongoing clinical course. RMD MUKESH Colon/CATHERINE /1:13 PM /1:24 PM
--- NOTE | 2017-01-01 15:51 | ECHRPT ---
Indication: CONCLUSIONS Moderately dilated left ventricle. Mild concentric left ventricular hypertrophy. The left ventricular systolic function is severely reduced with an estimated ejection fraction in th e range of 25-30%. There is diffuse global hypokinesis with distinct regional wall motion abnormalities. There is scott re hypokinesis of the anterior, anteroseptal, apical, and inferoapical segements. Mild thickening of the mitral valve leaflets. Mild mitral valve regurgitation. Mild mitral annular calcification. No mitral valve stenosis. There is mild tricuspid valve regurgitation. Normal estimated pulmonary pressures. Trivial pulmonary valve regurgitation. BP: 127 / 72 HR: Rhythm: MEASUREMENTS (Male / Female) Normal Values Technical Quality:Fair 2D ECHO LV Diastolic Diameter PLAX 4.0 cm 4.2 - 5.9 / 3.9 - 5.3 cm LV Systolic Diameter PLAX 3.6 cm IVS Diastolic Thickness 1.0 cm 0.6 - 1.0 / 0.6 - 0.9 cm LVPW Diastolic Thickness 1.0 cm 0.6 - 1.0 / 0.6 - 0.9 cm LV Relative Wall Thickness 0.5 LVOT Diameter 2.0 cm Aortic Root Diameter 2.6 cm M-MODE AV Cusp Separation MM 1.3 cm DOPPLER AV Peak Velocity 95.1 cm/s AV Peak Gradient 3.6 mmHg AV Mean Gradient 2.0 mmHg AV Velocity Time Integral 17.7 cm LVOT Peak Velocity 50.4 cm/s LVOT Peak Gradient 1.0 mmHg LVOT Velocity Time Integral 12.7 cm AV Area Cont Eq vti 2.3 cm AV Area Cont Eq pk 1.7 cm Mitral E Point Velocity 104.0 cm/s Mitral A Point Velocity 94.8 cm/s Mitral E to A Ratio 1.1 TR Peak Velocity 282.0 cm/s TR Peak Gradient 31.8 mmHg PV Peak Velocity 70.7 cm/s PV Peak Gradient 2.0 mmHg FINDINGS LEFT VENTRICLE Moderately dilated left ventricle. Mild concentric left ventricular hypertrophy. The left ventricular systolic function is severely reduced with an estimated ejection fraction in th e range of 25-30%. There is diffuse global hypokinesis with distinct regional wall motion abnormalities. There is scott re hypokinesis of the anterior, anteroseptal, apical, and inferoapical segements. RIGHT VENTRICLE Normal right ventricular size and systolic function. LEFT ATRIUM The left atrial size is normal. RIGHT ATRIUM The right atrial size is normal. ATRIAL SEPTUM Normal atrial septal thickness without atrial level shunting by limited color doppler interrogation. AORTA The aortic root and proximal ascending aorta are normal in size on limited imaging. MITRAL VALVE Mild thickening of the mitral valve leaflets. Mild mitral valve regurgitation. Mild mitral annular calcification. No mitral valve stenosis. AORTIC VALVE Trileaflet aortic valve. No aortic valve stenosis or regurgitation. TRICUSPID VALVE Structurally normal tricuspid valve. There is mild tricuspid valve regurgitation. Normal estimated pulmonary pressures. PULMONARY VALVE Trivial pulmonary valve regurgitation. VESSELS The inferior vena cava is normal in size. PERICARDIUM No pericardial effusion. Maxime Huang MD, FACC (Electronically Signed) Final Date:01 January 2017 15:50
[2017-01-01] MEDS ORDERED: CHLORHEXIDINE GLUCONATE 2 % 1 PACK (2 CLOTHS)(extra cloths) TOPICAL PRN (19:30)
[2017-01-01] MEDS: methylPREDNISolone SOD SUCC 125 MG/2 ML VIAL IV PUSH SCH (20:30)
[2017-01-02] VITALS (21 sets, daily range): BP systolic 95–150; BP diastolic 49–73; PULSE 64–91; RESP 18–44; TEMP 97–98.1; O2SAT 93–99
[2017-01-02] MEDS: CHLORHEXIDINE GLUCONATE 2 % 1 PACK (2 CLOTHS)(taper/protocol) TOPICAL SCH ×2 (04:00→22:18)
[2017-01-02 05:21] LABS: AUTOMATED NEUTROPHIL # 8.2 TH/MM3 (1.8-7.7); BASOPHIL % 0.1 % (0.0-2.0); HEMATOCRIT 37.6 % (35.0-46.0); HEMO FLAGS DIFF FINAL; LYMPH % 11.6 % (9.0-44.0); LYMPHOCYTE # 1.1 TH/MM3 (1.0-4.8); MEAN CELL VOLUME 89.6 FL (80.0-100.0); MEAN CORPUSCULAR HEMOGLOBIN 30.7 PG (27.0-34.0); MEAN CORPUSCULAR HGB CONC 34.2 % (32.0-36.0); MONO % 2.6 % (0.0-8.0); NEUT % 85.7 % (16.0-70.0); PLATELET COUNT 274 TH/MM3 (150-450); RED CELL DISTRIBUTION WIDTH 15.2 % (11.6-17.2); WHITE BLOOD COUNT 9.6 TH/MM3 (4.0-11.0)
[2017-01-02 06:03] LABS: ANION GAP 13 MEQ/L (5-15); BICARBONATE 27.7 MEQ/L (21.0-32.0); BLOOD UREA NITROGEN 33 MG/DL (7-18); CHLORIDE 97 MEQ/L (98-107); GLOMERULAR FILTRATION RATE 36 ML/MIN (>89); HDL CHOLESTEROL 62.2 MG/DL (40.0-60.0); LDL CHOLESTEROL 66 MG/DL (0-99); POTASSIUM 3.6 MEQ/L (3.5-5.1); SODIUM (NA) 138 MEQ/L (136-145)
[2017-01-02] MEDS: RESP: ALBUTEROL 2.5 MG/IPRATROPIUM 0.5 MG NEB (SCH) NEB ×2 (08:23→11:32)
[2017-01-02] MEDS: POTASSIUM CHLORIDE 25 MEQ EFFERVESCENT TAB PO SCH ×2 (08:53→22:12)
[2017-01-02] MEDS: LISINOPRIL 20 MG TAB PO SCH (08:53)
[2017-01-02] MEDS: ATORVASTATIN 40 MG TAB PO SCH (08:53)
[2017-01-02] MEDS: CLOPIDOGREL 75 MG TAB PO SCH (08:53)
[2017-01-02] MEDS: guaiFENesin E.R. 600 MG TAB PO SCH ×2 (08:53→22:13)
[2017-01-02] MEDS: HYDROCHLOROTHIAZIDE 25 MG TAB PO SCH (08:53)
[2017-01-02] MEDS: ASPIRIN EC 325 MG TABEC PO SCH (08:53)
[2017-01-02] MEDS: CARVEDILOL 3.125 MG TAB PO SCH ×2 (08:53→22:13)
[2017-01-02] MEDS: DOCUSATE SODIUM 50 MG/SENNA 8.6 MG TAB PO SCH ×2 (08:53→21:00)
[2017-01-02] MEDS: methylPREDNISolone SOD SUCC 125 MG/2 ML VIAL IV PUSH SCH (08:54)
[2017-01-02] MEDS: HEPARIN SODIUM - SQ 10,000 UNITS/ML VIAL SQ SCH ×2 (08:54→22:17)
[2017-01-02] MEDS: FUROSEMIDE 40 MG/4 ML VIAL IV PUSH SCH ×2 (08:55→18:13)
[2017-01-02] MEDS: SODIUM CHLORIDE 0.9% FLUSH 10 ML FLUSH IV FLUSH SCH ×2 (08:55→22:17)
--- NOTE | 2017-01-02 14:15 | PD.CARD.PN ---
Subjective Subjective Remarks Patient is doing with no chest pain. Echo showed EF around 25 -30%. Prior echo report said 40-45% but I doubt that was accurate. I reviewed her cath reports from 2004 and 2005. EF reported as 25% in 2004 with LAD totally occluded. RCA stented at that time. He restented the RCA in 2006 and EF reported at 32%. Anterior wall has always been akinetic and there is no reason the EF should have improved from 2006. Her COPD makes echoes suboptimal. LV size not significantly enlarged. Her troponins have elevated. She has known triple vessel disease and the troponins could be nonstemi or from COPD or CHF. She has no change in her EKG. She wants to go home. Objective Medications Current Medications Medications (Trade) Dose Ordered Sig/Gorge Route Start Time Stop Time Status Last Admin (NS Flush) 2 ml UNSCH PRN IV FLUSH 01/01/17 08:00 (NS Flush) 2 ml BID IV FLUSH 01/01/17 09:00 01/02/17 08:55 (Zofran Inj) 4 mg Q6H PRN IVP 01/01/17 08:00 (Heparin Inj) 5,000 units Q12H SQ 01/01/17 10:00 01/02/17 08:54 (Narcan Inj) 0.4 mg UNSCH PRN IV 01/01/17 08:00 ([place]-Colace) 1 tab BID PO 01/01/17 09:00 01/02/17 08:53 (Milk Of Magnesia Liq) 30 ml Q12H PRN PO 01/01/17 08:00 (Senokot) 17.2 mg Q12H PRN PO 01/01/17 08:00 (Dulcolax Supp) 10 mg DAILY PRN RECTAL 01/01/17 08:00 (Lactulose Liq) 30 ml DAILY PRN PO 01/01/17 08:00 (Ecotrin Ec) 325 mg DAILY PO 01/02/17 09:00 01/02/17 08:53 (Lipitor) 40 mg DAILY PO 01/01/17 10:00 01/02/17 08:53 (Coreg) 3.125 mg BID PO 01/01/17 10:00 01/02/17 08:53 (Plavix) 75 mg DAILY PO 01/01/17 10:00 01/02/17 08:53 (Smiley 5-325 Mg) 1 tab Q6H PRN PO 01/01/17 08:15 (Nitrostat Sl) 0.4 mg Q5M PRN SL 01/01/17 08:15 (K-Lyte Cl Eff) 25 meq Q12HR PO 01/01/17 10:00 01/02/17 08:53 (Mucinex Er) 600 mg BID PO 01/01/17 10:00 01/02/17 08:53 (Robitussin Dm 200-20 Mg/10 ml Liq) 10 ml Q6H PRN PO 01/01/17 08:45 (Prinivil) 20 mg DAILY PO 01/01/17 10:00 01/02/17 08:53 (Hydrodiuril) 25 mg DAILY PO 01/01/17 10:00 01/02/17 08:53 Miscellaneous Information Patient in critical care unit? Ass... [id number] .XX 01/01/17 19:30 (Chlorhexidine 2% Cloth) 3 pack DAILY@04 TOPICAL 01/02/17 04:00 01/06/17 04:01 (Chlorhexidine 2% Cloth) 3 pack UNSCH PRN TOPICAL 01/01/17 19:30 01/06/17 19:28 (Lasix Inj) 20 mg BID@09,18 IV PUSH 01/02/17 09:00 01/02/17 08:55 (Deltasone) 20 mg BID PO 01/02/17 21:00 (Symbicort 160-4.5 Inh) 1 puff Q12HR INH 01/02/17 21:00 Vital Signs / I&O Vital Signs Date Time Temp Pulse Resp B/P Pulse Ox O2 Delivery O2 Flow Rate FiO2 01/02/17 08:24 97 Nasal Cannula 2.00 01/02/17 06:00 71 01/02/17 04:00 69 01/02/17 04:00 98.1 69 18 138/63 98 01/02/17 02:00 71 01/02/17 00:00 64 01/02/17 00:00 98.0 64 21 98/50 97 01/01/17 22:00 78 01/01/17 20:47 98 Nasal Cannula 2.00 01/01/17 20:00 97.7 80 23 124/58 98 01/01/17 20:00 75 01/01/17 18:00 73 01/01/17 16:00 97.9 71 24 151/77 100 01/01/17 16:00 71 01/01/17 14:00 75 I/O 01/01/17 01/01/17 01/01/17 01/02/17 01/02/17 01/02/17 07:00 15:00 23:00 07:00 15:00 23:00 Intake Total 518 ml 450 ml 280 ml Output Total 950 ml 850 ml 1075 ml Balance -432 ml -400 ml -795 ml Intake Oral 480 ml 450 ml 280 ml IV Total 38 ml Output Urine Total 950 ml 850 ml 1075 ml # Bowel Movements 0 Physical Exam GENERAL: SKIN: Warm and dry. HEAD: Normocephalic. EYES: No scleral icterus. No injection or drainage. NECK: Supple, trachea midline. No JVD or lymphadenopathy. CARDIOVASCULAR: Regular rate and rhythm without murmurs, gallops, or rubs. RESPIRATORY: Breath sounds equal bilaterally. No accessory muscle use. GASTROINTESTINAL: Abdomen soft, non-tender, nondistended. MUSCULOSKELETAL: No cyanosis, or edema. Laboratory Laboratory Tests Test 01/01/17 01/02/17 17:53 04:37 Total Creatine Kinase 108 U/L Troponin I 0.23 NG/ML White Blood Count 9.6 TH/MM3 Red Blood Count 4.20 MIL/MM3 Hemoglobin 12.9 GM/DL Hematocrit 37.6 % Mean Corpuscular Volume 89.6 FL Mean Corpuscular Hemoglobin 30.7 PG Mean Corpuscular Hemoglobin 34.2 % Concent Red Cell Distribution Width 15.2 % Platelet Count 274 TH/MM3 Mean Platelet Volume 8.4 FL Neutrophils (%) (Auto) 85.7 % Lymphocytes (%) (Auto) 11.6 % Monocytes (%) (Auto) 2.6 % Eosinophils (%) (Auto) 0.0 % Basophils (%) (Auto) 0.1 % Neutrophils # (Auto) 8.2 TH/MM3 Lymphocytes # (Auto) 1.1 TH/MM3 Monocytes # (Auto) 0.3 TH/MM3 Eosinophils # (Auto) 0.0 TH/MM3 Basophils # (Auto) 0.0 TH/MM3 CBC Comment DIFF FINAL Differential Comment Sodium Level 138 MEQ/L Potassium Level 3.6 MEQ/L Chloride Level 97 MEQ/L Carbon Dioxide Level 27.7 MEQ/L Anion Gap 13 MEQ/L Blood Urea Nitrogen 33 MG/DL Creatinine 1.41 MG/DL Estimat Glomerular Filtration 36 ML/MIN Rate Random Glucose 129 MG/DL Calcium Level 8.8 MG/DL Triglycerides Level 61 MG/DL Cholesterol Level 140 MG/DL LDL Cholesterol 66 MG/DL HDL Cholesterol 62.2 MG/DL Cholesterol/HDL Ratio 2.25 RATIO Assessment and Plan Assessment and Plan She has been treated for acute systolic CHF and COPD. Cardiac williamson she is stable and not a good candidate for invasive studies which she has declined in past. I have no objection to her being discharged when Dr. Freeman thinks it is ok to do so. Lisinopril/hct could be changed to lisinopril plus furosemide 20 mg daily. She will need follow up BMP. Discussed Condition With Patient and family. Abilio Decker MD Jan 02, 2017 14:14
--- NOTE | 2017-01-02 17:19 | HHI.PR ---
Subjective Interval History Alert, oriented, feels better, wants to go home Review of Systems Constitutional Constitutional Remarks No resting dyspnea, no chest pain, 10 systems reviewed and otherwise negative Vitals/Results Intake & Output 01/01/17 01/01/17 01/02/17 15:00 23:00 07:00 Intake Total 518 ml 450 ml 280 ml Output Total 950 ml 850 ml 1075 ml Balance -432 ml -400 ml -795 ml Intake Oral 480 ml 450 ml 280 ml IV Total 38 ml Output Urine Total 950 ml 850 ml 1075 ml # Bowel Movements 0 Vital Signs Vital Signs Date Time Temp Pulse Resp B/P Pulse Ox O2 Delivery O2 Flow Rate FiO2 01/02/17 08:24 97 Nasal Cannula 2.00 01/02/17 06:00 71 01/02/17 04:00 69 01/02/17 04:00 98.1 69 18 138/63 98 01/02/17 02:00 71 01/02/17 00:00 64 01/02/17 00:00 98.0 64 21 98/50 97 01/01/17 22:00 78 01/01/17 20:47 98 Nasal Cannula 2.00 01/01/17 20:00 97.7 80 23 124/58 98 01/01/17 20:00 75 01/01/17 18:00 73 CBC/BMP: 01/02/17 0437 01/02/17 0437 Lab Results Laboratory Tests Test 01/01/17 01/02/17 17:53 04:37 Total Creatine Kinase 108 U/L Troponin I 0.23 NG/ML White Blood Count 9.6 TH/MM3 Red Blood Count 4.20 MIL/MM3 Hemoglobin 12.9 GM/DL Hematocrit 37.6 % Mean Corpuscular Volume 89.6 FL Mean Corpuscular Hemoglobin 30.7 PG Mean Corpuscular Hemoglobin 34.2 % Concent Red Cell Distribution Width 15.2 % Platelet Count 274 TH/MM3 Mean Platelet Volume 8.4 FL Neutrophils (%) (Auto) 85.7 % Lymphocytes (%) (Auto) 11.6 % Monocytes (%) (Auto) 2.6 % Eosinophils (%) (Auto) 0.0 % Basophils (%) (Auto) 0.1 % Neutrophils # (Auto) 8.2 TH/MM3 Lymphocytes # (Auto) 1.1 TH/MM3 Monocytes # (Auto) 0.3 TH/MM3 Eosinophils # (Auto) 0.0 TH/MM3 Basophils # (Auto) 0.0 TH/MM3 CBC Comment DIFF FINAL Differential Comment Sodium Level 138 MEQ/L Potassium Level 3.6 MEQ/L Chloride Level 97 MEQ/L Carbon Dioxide Level 27.7 MEQ/L Anion Gap 13 MEQ/L Blood Urea Nitrogen 33 MG/DL Creatinine 1.41 MG/DL Estimat Glomerular Filtration 36 ML/MIN Rate Random Glucose 129 MG/DL Calcium Level 8.8 MG/DL Triglycerides Level 61 MG/DL Cholesterol Level 140 MG/DL LDL Cholesterol 66 MG/DL HDL Cholesterol 62.2 MG/DL Cholesterol/HDL Ratio 2.25 RATIO Physical Exam General General Appearance: Well Developed, Comfortable Eyes Eye Exam: Pupils Reactive Ears & Nose Ears & Nose Exam: Nasal Mucosa [place] Throat Throat Exam: Oral Mucosa [place] & Moist Neck Neck Exam: Trachea Midline Pulmonary Resp Exam: Breath Sounds Equal Cardiology CV Exam: Normal Sinus Rhythm, Good Perfusion Gastrointestinal/Abdomen GI Exam: Non-Tender, Bowel Sounds Present Musculoskeletal MS Exam: Normal Tone Integumentary Skin Exam: Warm, Dry Neurologic Neuro Exam: Alert, Awake, Oriented, Speech Clear, Moving All Extremities, Power Truck Driver Equal Psychiatric Psych Exam: Appropriate Responses VTE Prophylaxis VTE Prophylaxis Meds: Heparin Assessment/Plan Assessment/Plan Assessment Admitted in respiratory distress, improved Acute on chronic systolic heart failure Ejection fraction 25-30%, down from 45-50% in the previous echo COPD exacerbation Hypoglycemia, rule out diabetes Possible pneumonia Chest pain, no evidence of [place] Renal insufficiency/chronic kidney disease Management Transfer out of ICU Discontinue Valle catheter Switch all intravenous medications to by mouth Ambulate Follow renal function Follow electrolytes and replace admitted Will need spirometry before discharge tomorrow according to Dr. pittman Discussed with patient and family Discussed with nurse 35 minutes Sergey Hull MD Jan 02, 2017 17:19
[2017-01-02 18:36] LABS: HEMOGLOBIN A1a 0.9 %; HEMOGLOBIN A1b 1.7 %; HEMOGLOBIN Ao 85.6 %; HEMOGLOBIN LA1C 2.1 %; HEMOGLOBIN P3 4.1 %
[2017-01-02] MEDS ORDERED: RESP: ALBUTEROL 2.5 MG/IPRATROPIUM 0.5 MG NEB (SCH) NEB (20:00)
[2017-01-02] MEDS: BUDESONIDE-FORMOTEROL 160/4.5 MCG INHALER INH SCH (21:00)
[2017-01-02] MEDS: predniSONE 20 MG TAB PO SCH (22:14)
[2017-01-03] VITALS: BP 139/65; PULSE 78; RESP 20; TEMP 97.5; O2SAT 94
[2017-01-03 04:00] VITALS: BP 141/67; PULSE 65; RESP 20; TEMP 98.5; O2SAT 95
[2017-01-03 08:00] VITALS: BP 141/63; PULSE 67; RESP 18; TEMP 97.5; O2SAT 97
[2017-01-03 08:25] VITALS: PULSE 63
[2017-01-03] MEDS: LISINOPRIL 20 MG TAB PO SCH (08:53)
[2017-01-03] MEDS: ATORVASTATIN 40 MG TAB PO SCH (08:54)
[2017-01-03] MEDS: HYDROCHLOROTHIAZIDE 25 MG TAB PO SCH (08:54)
[2017-01-03] MEDS: CARVEDILOL 3.125 MG TAB PO SCH (08:54)
[2017-01-03] MEDS: CLOPIDOGREL 75 MG TAB PO SCH (08:54)
[2017-01-03] MEDS: guaiFENesin E.R. 600 MG TAB PO SCH (08:54)
[2017-01-03] MEDS: HEPARIN SODIUM - SQ 10,000 UNITS/ML VIAL SQ SCH (08:54)
[2017-01-03] MEDS: ASPIRIN EC 325 MG TABEC PO SCH (08:54)
[2017-01-03] MEDS: DOCUSATE SODIUM 50 MG/SENNA 8.6 MG TAB PO SCH (08:54)
[2017-01-03] MEDS: predniSONE 20 MG TAB PO SCH (08:54)
[2017-01-03] MEDS: POTASSIUM CHLORIDE 25 MEQ EFFERVESCENT TAB PO SCH (08:55)
[2017-01-03] MEDS: BUDESONIDE-FORMOTEROL 160/4.5 MCG INHALER INH SCH (08:56)
[2017-01-03] MEDS: SODIUM CHLORIDE 0.9% FLUSH 10 ML FLUSH IV FLUSH SCH (08:56)
[2017-01-03] MEDS ORDERED: FUROSEMIDE 20 MG TAB PO SCH (09:00)
[2017-01-03] MEDS ORDERED: KETOROLAC TROMETHAMINE 30 MG/ML (IVP) VIAL IV PUSH PRN (10:00)
[2017-01-03 10:23] LABS: ANION GAP 11 MEQ/L (5-15); BICARBONATE 28.9 MEQ/L (21.0-32.0); BLOOD UREA NITROGEN 59 MG/DL (7-18); CHLORIDE 95 MEQ/L (98-107); GLOMERULAR FILTRATION RATE 34 ML/MIN (>89); MAGNESIUM 2.5 MG/DL (1.5-2.5); POTASSIUM 3.6 MEQ/L (3.5-5.1); SODIUM (NA) 135 MEQ/L (136-145)
--- NOTE | 2017-01-03 11:45 | HHI.FF ---
Face to Face Verification Diagnosis: (1) Dyspnea (2) COPD with acute exacerbation (3) Pneumonia (4) Chest pain (5) Respiratory distress Physical Therapy Order: Evaluate and Treat, Improve ambulation, Strength and gait training Home Health Nursing Order: Signs/symptoms of disease process Nursing assessment with vital signs I have seen patient Anahi Mcmahon on 01/03/17. My clinical findings support the need for the requested home health care services because: Ltd mobility - disease progression Patient has SOB Med compliance is questionable Limited ability to care for self I certify that my clinical findings support that this patient is homebound because: Hx COPD- exertion dyspnea/weakness Carmen Llanos TECHNICAL SERVICES LIBRARIAN Jan 03, 2017 11:45
--- NOTE | 2017-01-03 11:50 | HHI.PR ---
Subjective Subjective Remarks Ambulating in victor Sitting on side of bed Anxious to go home Denies any shortness of breath at rest Review of Systems Constitutional Constitutional: Fatigue (easily) Constitutional Remarks 10 point ROS done positives noted Pulmonary Respiratory: Shortness of Breath (exertional) Musculoskeletal MS: Weakness (occasional especially when out in hot sun) Psychiatric Psychiatric: Normal Mood, Anxiety Vitals/Results Intake & Output 01/02/17 01/02/17 01/03/17 14:59 22:59 06:59 Intake Total 600 ml 480 ml Output Total 1850 ml 350 ml Balance -1250 ml -350 ml 480 ml Intake Oral 600 ml 480 ml Output Urine Total 1850 ml 350 ml # Voids 2 # Bowel Movements 0 0 Vital Signs Vital Signs Date Time Temp Pulse Resp B/P Pulse Ox O2 Delivery O2 Flow Rate FiO2 01/03/17 08:25 63 01/03/17 08:00 97.5 67 18 141/63 97 01/03/17 04:00 98.5 65 20 141/67 95 01/03/17 00:00 97.5 78 20 139/65 94 01/02/17 22:15 77 01/02/17 21:23 97.0 77 18 138/71 94 01/02/17 20:00 97.8 75 20 149/66 99 01/02/17 20:00 75 01/02/17 17:06 83 38 150/73 97 01/02/17 17:00 82 38 93 01/02/17 16:05 80 29 121/54 94 01/02/17 16:00 98.1 84 44 95 01/02/17 15:00 86 31 98/49 96 01/02/17 14:00 86 34 95/72 96 01/02/17 13:00 87 34 98/69 97 01/02/17 12:00 97.8 81 35 110/52 98 CBC/BMP: 01/02/17 0437 01/03/17 0827 Lab Results Laboratory Tests Test 01/03/17 08:27 Sodium Level 135 MEQ/L Potassium Level 3.6 MEQ/L Chloride Level 95 MEQ/L Carbon Dioxide Level 28.9 MEQ/L Anion Gap 11 MEQ/L Blood Urea Nitrogen 59 MG/DL Creatinine 1.46 MG/DL Estimat Glomerular Filtration 34 ML/MIN Rate Random Glucose 102 MG/DL Calcium Level 8.8 MG/DL Phosphorus Level 4.9 MG/DL Magnesium Level 2.5 MG/DL Physical Exam General General Appearance: Well Developed, Comfortable Eyes Eye Exam: Pupils Reactive Ears & Nose Ears & Nose Exam: Nasal Mucosa [place] Throat Throat Exam: Oral Mucosa [place] & Moist Neck Neck Exam: Trachea Midline Pulmonary Resp Exam: Breath Sounds Equal Resp Remarks Exertional dyspnea at times Cardiology CV Exam: Normal Sinus Rhythm, Good Perfusion Gastrointestinal/Abdomen GI Exam: Non-Tender, Bowel Sounds Present Musculoskeletal MS Exam: Normal Tone Integumentary Skin Exam: Warm, Dry Neurologic Neuro Exam: Alert, Awake, Oriented, Speech Clear, Moving All Extremities, Jack Spinner Equal Psychiatric Psych Exam: Appropriate Responses VTE Prophylaxis VTE Prophylaxis Meds: Heparin Assessment/Plan Assessment/Plan Assessment respiratory distress, and insufficiency improved Acute on chronic systolic heart failure Ejection fraction 25-30%, down from 45-50% in the previous echo COPD exacerbation Hypoglycemia, rule out diabetes Possible pneumonia Chest pain, no evidence of [place] Renal insufficiency/chronic kidney disease Management Ambulate today out and vict[place] and up in room, walk test done with adequate O2 levels in the 90s. Does have some exertional dyspnea, but is tolerating and compensated with her oxygen levels Explained to patient and her family in detail discharge planning and control of her COPD. Encourage patient to stay out of the hot sun, take frequent rest periods, use her inhaler twice a day or when necessary for her shortness of breath Stay hydrated drink plenty of fluids, good nutritional support. Patient anxious to go home and agrees with the plan. Patient to take home her incentive spirometry and use daily Vital signs and labs reviewed , renal function has been monitored, patient at her baseline Electrolytes stable and have been monitored Discussed with patient and family Discussed with nurse and charge nurse Discussed with Dr. Hull, seen on his behalf 40 minutes, 2 visits with patient and her family Carmen Llanos Jan 03, 2017 11:50
[2017-01-03 11:58] VITALS: BP 108/55; PULSE 79; RESP 18; TEMP 97.3; O2SAT 97
[2017-01-03 13:13] VITALS: O2SAT 100
--- NOTE | 2017-01-03 15:18 | HHI.DS ---
Discharge Summary Admission Date Jan 01, 2017 at 08:08 Discharge Date: Jan 03, 2017 Admitting Diagnosis exacerbation COPD. Pneumonia. CHF. (1) Respiratory distress Diagnosis: Principal (2) CHF (congestive heart failure) Diagnosis: Secondary (3) COPD with acute exacerbation Diagnosis: Principal (4) Pneumonia Diagnosis: Principal (5) Elevated troponin Diagnosis: Secondary (6) Renal insufficiency Diagnosis: Secondary (7) Chest pain Diagnosis: Secondary (8) Hyperglycemia Diagnosis: Principal Brief History This was a pleasant 86-year-old elderly white female with significant past medical history of cardiogenic shock and respiratory failure in 2004 after having a myocardial infarction, stents 2 in 2004, ischemic cardiomyopathy, CHF , COPD, prior tobacco abuse quit in 2004. Patient indicated that she has been short of breath for the last couple weeks, on Friday she finally went to see her primary care physician who put her on a Z-Evin and gave her IM antibiotic. She had been using a nebulizer at home as needed for wheezing. Has history of COPD, she's not oxygen dependent. Family had noted that she's had increased dyspnea with exertion. Patient endorsed orthopnea, has been having intermittent chest pain associated with increased shortness of breath and wheezing. This morning, she woke up suddenly very short of breath and tachypnea. Has noted increased ankle swelling. denies any fever, no chills, very little sputum. She did take hydrochlorothiazide. She had been compliant with medications. Her tool drawing checker is Dr. Decker. Her last echocardiogram was in 2014 at this facility showed improvement in EF from 20% to 45-50%. When EMS arrived, patient was noted with wheezing and crackles, she was given Lasix, nitroglycerin sublingual. On arrival, she was noted in respiratory distress and was switched to BiPAP. CBC/BMP: 01/02/17 0437 01/03/17 0827 Significant Findings Laboratory Tests Test 01/01/17 01/01/17 01/01/17 01/01/17 06:13 06:35 06:40 10:37 White Blood Count 14.0 TH/MM3 (4.0-11.0) Neutrophils # (Auto) 9.3 TH/MM3 (1.8-7.7) Activated Partial 18.2 SEC Thromboplast Time (24.3-30.1) Carbon Dioxide Level 19.0 MEQ/L (21.0-32.0) Blood Urea Nitrogen 23 MG/DL (7-18) Creatinine 1.31 MG/DL (0.50-1.00) Estimat Glomerular Filtration 39 ML/MIN (>89) Rate Random Glucose 236 MG/DL (74-106) Calcium Level 8.4 MG/DL (8.5-10.1) Creatine Kinase MB 4.3 NG/ML (0.5-3.6) Troponin I 0.07 NG/ML 0.16 NG/ML (0.02-0.05) (0.02-0.05) B-Type Natriuretic Peptide 1654 PG/ML (0-100) Blood Gas HCO3 21 mmol/L (22-26) Blood Gas Base Excess -2.9 mmol/L (-2-2) Arterial Blood Partial 37 mmHg (38-42) Pressure CO2 Arterial Blood Partial 328 mmHG Pressure O2 (61-120) Urine Bacteria RARE /hpf (NONE) Urine Mucus FEW /lpf (OCC) Test 01/01/17 01/02/17 01/03/17 17:53 04:37 08:27 Troponin I 0.23 NG/ML (0.02-0.05) Neutrophils (%) (Auto) 85.7 % (16.0-70.0) Neutrophils # (Auto) 8.2 TH/MM3 (1.8-7.7) Chloride Level 97 MEQ/L 95 MEQ/L (98-107) (98-107) Blood Urea Nitrogen 33 MG/DL (7-18) 59 MG/DL (7-18) Creatinine 1.41 MG/DL 1.46 MG/DL (0.50-1.00) (0.50-1.00) Estimat Glomerular Filtration 36 ML/MIN (>89) 34 ML/MIN (>89) Rate Random Glucose 129 MG/DL (74-106) HDL Cholesterol 62.2 MG/DL (40.0-60.0) Sodium Level 135 MEQ/L (136-145) Imaging Last Impressions Chest X-Ray 01/01/17 0604 Signed Impressions: Service Date/Time: Sunday, January 01, 2017 06:10 - CONCLUSION: Hyperaeration of the lung bach with mild bibasilar infiltrates. Rambo Bowman MD Hospital Course Patient was evaluated in emergency room, laboratory workup was completed. CBC remarkable for leukocytosis, WBC of 14. BMP remarkable for chronic renal insufficiency, creatinine 1.31. Random glucose 236. Troponin elevated, 0.07. B natriuretic peptide 1654. Carbon dioxide 19. Chest x-ray show high. Patient of the lung bach with mild right basilar infiltrates. Patient is currently in a nitro drip, she is off BiPAP at this time. She was given DuoNeb' s and IV Solu-Medrol. Indicates she is feeling slightly improved. Family is at bedside. End-of-life care issues and CODE STATUS have been discussed with the patient and family. At this time patient wants to remain a full code and will accept intubation if necessary. Patient will be admitted to the intensive care unit for further evaluation. Patient's initial treatment was based on her current diagnosis and plan a care. Patient's symptoms of shortness of breath and pain were managed with medications monitor in telemetry for any dysrhythmias, oxygen dual nebs, and diuresis. Patient's vital signs were monitored every 4hr, as well as daily labs and telemetry monitoring. Patient's nutrition improved activity was monitored patient was ambulating on day 2 with out acute chest pain. Shortness of breath seems to be exertional but patient is compensated. Walk test was done on 721 before discharge, patient's oxygen level stayed in the 90s and her exertional dyspnea was compensated and controlled. Patient had consulting physicians assisting with her care, recommendation for incentive spirometry was ordered and explained and demonstrated to patient before going home. Patient and family was educated on staying in a cool area, not being out of the direct sun, not walking in the hot sun has to manage her shortness of breath and symptoms. Patient was sent home with her incentive spirometry, consult for home health care, and COPD pattie sánchez. Explained usage to patient and family. Patient was requesting to go home, symptoms were stabilized and she will follow-up with her PCP, cardiology and pulmonary as needed. Pt Condition on Discharge: Stable Discharge Disposition: Disch w/ Home Health Serv Discharge Instructions DIET: Follow Instructions for: Heart Healthy Diet Activities you can perform: Regular-No Restrictions, See Additionl Instruction Other Activity Instructions: Stay out of hot sun and monitor activities for rest periods Carmen Llanos Jan 03, 2017 15:18
[2017-01-03 16:27] LABS: HEMOGLOBIN A1a 1.3 %; HEMOGLOBIN A1b 1.5 %; HEMOGLOBIN Ao 85.8 %; HEMOGLOBIN LA1C 1.9 %
== END 2017-01-03 13:50 | disposition home health service (06) | DRG 291 ==
LOC: NEPC 05:55 → NEDA 08:08 → HIME 13:40 → N04B 01-02 20:35
PROVIDERS: ADMIT Specialist; ATTEND Specialist
PROC: 5A09357 Assistance with Respiratory Ventilation, Less than 24 Consecutive Hours, Continuous Positive Airway Pressure (ICD-10-PCS; principal; 2017-01-01)
DX: I13.0 Hypertensive heart and chronic kidney disease with heart failure and stage 1 through stage 4 chronic kidney disease, or unspecified chronic kidney disease (principal); J18.9 Pneumonia, unspecified organism; J96.90 Respiratory failure, unspecified, unspecified whether with hypoxia or hypercapnia; I50.23 Acute on chronic systolic (congestive) heart failure; J44.0 Chronic obstructive pulmonary disease with (acute) lower respiratory infection; J44.1 Chronic obstructive pulmonary disease with (acute) exacerbation; I25.5 Ischemic cardiomyopathy; I25.10 Atherosclerotic heart disease of native coronary artery without angina pectoris; M19.90 Unspecified osteoarthritis, unspecified site; R73.9 Hyperglycemia, unspecified; N18.9 Chronic kidney disease, unspecified; E78.5 Hyperlipidemia, unspecified; I25.2 Old myocardial infarction; Z95.5 Presence of coronary angioplasty implant and graft; Z87.891 Personal history of nicotine dependence; Z79.82 Long term (current) use of aspirin
CPT/HCPCS: 36600; 51702; 71010; 80048; 80053; 80061; 81001; 82550; 82552; 82805; 83036; 83735; 83880; 84100; 84484; 85025; 85610; 85730; 87040; 87641; 93005; 93306; 94002; 94620; 94640; 94664; 96374; 96375; J0456; J0692; J1644; J1940; J2060; J2270; J2405; J2920; J2930; J7050; J7512